=== PATIENT | male | born 1980 | race Caucasian/White ===

== ENCOUNTER 2016-10-17 14:46 | Inpatient (IN) | payer OTHER ==
[~2016-10-17] VITALS: Ht 172.7 cm; Wt 83.8 kg
[2016-10-17 13:08] VITALS: O2SAT 100
[2016-10-17 14:45] VITALS: O2SAT 100
[2016-10-17] MEDS ORDERED: DIPHTH/TETANUS/ACEL PERTUSSIS (BOOSTER) 0.5 ML VIAL/PFS IM ONE (14:53)
[2016-10-17] MEDS ORDERED: ceFAZolin 2 GM PREMIX 50 ML ONE (14:54)
[2016-10-17 15:12] LABS: AUTOMATED NEUTROPHIL # 5.1 TH/MM3 (1.8-7.7); BASOPHIL % 0.3 % (0.0-2.0); EOSINOPHIL % 0.3 % (0.0-4.0); HEMATOCRIT 40.8 % (39.0-51.0); HEMO FLAGS DIFF FINAL; LYMPH % 21.2 % (9.0-44.0); LYMPHOCYTE # 1.5 TH/MM3 (1.0-4.8); MEAN CORPUSCULAR HEMOGLOBIN 28.9 PG (27.0-34.0); MONO % 8.7 % (0.0-8.0); NEUT % 69.5 % (16.0-70.0); PLATELET COUNT 196 TH/MM3 (150-450); RED BLOOD COUNT 4.79 MIL/MM3 (4.50-5.90); RED CELL DISTRIBUTION WIDTH 13.3 % (11.6-17.2); WHITE BLOOD COUNT 7.3 TH/MM3 (4.0-11.0)
[2016-10-17 15:13] LABS: I-STAT POTASSIUM 3.7 MMOL/L (3.5-4.9)
--- NOTE | 2016-10-17 15:14 | RADRPT ---
EXAM DATE/TIME: 10/17/2016 14:41 [facility] COMPARISON: No previous studies available for comparison. INDICATIONS : Trauma alert, fall from 8 feet to cement. MEDICAL HISTORY : None. SURGICAL HISTORY : None. ENCOUNTER: Initial ACUITY: 1 day PAIN SCORE: 0/10 LOCATION: Bilateral chest FINDINGS: Portable AP view of the chest performed on a trauma backboard demonstrates a normal-sized cardiac noam houette. No effusion, consolidation, or pneumothorax is visualized. The bones and soft tissues demons trate no acute abnormality. CONCLUSION: No acute abnormality is identified. Ronald Richardson MD on October 17, 2016 at 15:12 Board Certified Radiologist. This report was verified electronically.
--- NOTE | 2016-10-17 15:15 | RADRPT ---
EXAM DATE/TIME: 10/17/2016 14:41 [facility] COMPARISON: No previous studies available for comparison. INDICATIONS : Fall from 8 feet onto cement. MEDICAL HISTORY : None. SURGICAL HISTORY : None. ENCOUNTER: Initial ACUITY: 1 day PAIN SCORE: Non-responsive. LOCATION: pelvis FINDINGS: Single AP view of the pelvis performed on a trauma backboard demonstrates no fracture or dislocation. Mineralization is within normal limits. There is no significant arthropathy. No soft tissue abnormal ity or radiopaque foreign body is identified. CONCLUSION: No acute abnormality is identified. Ronald Richardson MD on October 17, 2016 at 15:13 Board Certified Radiologist. This report was verified electronically.
--- NOTE | 2016-10-17 15:19 | RADRPT ---
EXAM DATE/TIME: 10/17/2016 15:01 This report includes an Addendum and supersedes previous reports for this exam. [facility] COMPARISON: No previous studies available for comparison. INDICATIONS : Trauma. Fell off ladder. Cephalgia. Loss of consciousness. RADIATION DOSE: 56.35 CTDIvol (mGy) MEDICAL HISTORY : Unobtainable. SURGICAL HISTORY : Unobtainable. ENCOUNTER: Initial ACUITY: 1 day PAIN SCALE: 5/10 LOCATION: cranial TECHNIQUE: Multiple contiguous axial images were obtained of the head. Using automated exposure control and adj ustment of the mA and/or kV according to patient size, radiation dose was kept as low as reasonably a chievable to obtain optimal diagnostic quality images. FINDINGS: CEREBRUM: The ventricles are normal in size. No evidence of midline shift, mass lesion, hemorrhage or acute in farction. No extra-axial fluid collections are seen. POSTERIOR FOSSA: The cerebellum and brainstem demonstrate no acute abnormality. The 4th ventricle is midline. The ce rebellopontine angle is unremarkable. EXTRACRANIAL: There are blood products layering in the right maxillary sinus. Mucoperiosteal thickening is present within the ethmoid air cells and sphenoid sinus. There is a questionable fracture through the right m edial pterygoid plate. Air is present within the right facial soft tissues. SKULL: The calvaria is intact. No evidence of skull fracture. CONCLUSION: 1. No acute intracranial abnormality is identified. 2. There are findings suspicious for maxillofacial trauma. These findings will be further evaluated a nd described on maxillofacial CT. Ronald Richardson MD on October 17, 2016 at 15:14 Board Certified Radiologist. This report was verified electronically. ADDENDUM: COMPARISON: CT FACIAL BONES W/O CONTRAST, October 17, 2016, 15:02. After correlating with the recent maxillofacial CT there appears to be a small hemorrhagic contusion in the left lateral temporal lobe with questionable adjacent small subdural hematoma. Suggest attenti on to this followup imaging. Ronald Richardson MD on October 17, 2016 at 17:55 Board Certified Radiologist. This report was verified electronically.
[2016-10-17 15:21] LABS: APTT (PATIENT) 22.6 SEC (24.3-30.1); PROTHROMBIN TIME - PATIENT 11.6 SEC (9.8-11.6)
--- NOTE | 2016-10-17 15:25 | PD ---
HPI Chief Complaint: Trauma (Alert) Time Seen by Provider: 14:54 Travel History International Travel<30 days: No Contact w/Intl Traveler<30days: No Traveled to known affect area: No History of Present Illness HPI Patient was brought in as a trauma alert by [employer]. I was in the room prior to patient's arrival along with the rest of the trauma team waiting for him. Patient was awake when he arrived and was able to give history. 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 He landed directly on his head. The fall was from 8-10 feet height. Patient did have loss of consciousness and initially did not remember the event. Initial GCS as per the paramedics at scene was 14. However en route his GCS improved and it was 15 upon arrival. He had blood coming from his right here in his nostril. Patient was boarded and collared and initially when he came in was complaining of upper back pain. He claims to be otherwise a healthy person. [facility] Past Medical History Narrative Medical List of his past medical, surgical, social and family history was reviewed from the nursing note. Allergies-Medications (Allergen,Severity, Reaction): Coded Allergies: No Known Allergies (Unverified , 10/17/16) Comments Denied any medication allergies. Reported Meds & Prescriptions Reported Meds & Active Scripts Active Narrative Medication Denied to be on any medications. Review of Systems Except as stated in HPI: all other systems reviewed are Neg Physical Exam Narrative GENERAL: Awake, alert, moderate distress, anxious, boarded and collared SKIN: Warm and dry. HEAD: Atraumatic. Normocephalic. EYES: Pupils equal and round. No scleral icterus. No injection or drainage. ENT: No nasal bleeding or discharge. Mucous membranes pink and moist. Right eardrum is not visualized due to fresh blood in the ear canal. Left TM visible and positive light reflex. Dried blood around the nostril. NECK: Trachea midline. No JVD. CARDIOVASCULAR: Regular rate and rhythm. No murmur appreciated. RESPIRATORY: No accessory muscle use. Clear to auscultation. Breath sounds equal bilaterally. GASTROINTESTINAL: Abdomen soft, non-tender, nondistended. Hepatic and splenic margins not palpable. MUSCULOSKELETAL: No obvious deformities. No clubbing. No cyanosis. No edema. Patient was rolled off the backboard. No step-offs or point tenderness. No contusions or abrasions. Pelvis stable. NEUROLOGICAL: Awake and alert. No obvious cranial nerve deficits. Motor grossly within normal limits. Normal speech. PSYCHIATRIC: Appropriate mood and affect; insight and judgment normal. Data Data Last Documented VS Orders Geet-Kof-Hktobd (Booster) Inj (Boostrix (10/17/16 14:53) Cefazolin 2 Gm Premix (Ancef 2 Gm Premix (10/17/16 14:54) I-Stat Profile (10/17/16 14:48) I-Stat Creatinine (10/17/16 14:48) Complete Blood Count With Diff (10/17/16 14:48) Prothrombin Time / Inr (Pt) (10/17/16 14:48) Act Partial Throm Time (Ptt) (10/17/16 14:48) Type And Screen (10/17/16 14:48) Chest, Single Ap (10/17/16 14:48) Pelvis, Ap Only (Routine) (10/17/16 14:48) Ct Abd/Pel W Iv Contrast(Rout) (10/17/16 14:48) Ct Thorax/ Chest W Iv Contrast (10/17/16 14:48) Ct Facial Bones W/O Iv Cont (10/17/16 14:48) Iv Access Insert/Monitor (10/17/16 14:48) Ecg Monitoring (10/17/16 14:48) Oximetry (10/17/16 14:48) Oxygen Administration (10/17/16 14:48) Ed Poc Ultrasound (10/17/16 14:48) Ct Brain W/O Iv Contrast(Rout) (10/17/16 15:00) Ct Cerv Spine W/O Contrast (10/17/16 15:00) Iohexol 350 Inj (Omnipaque 350 Inj) (10/17/16 15:31) Admit Order (Ed Use Only) (10/17/16 15:38) Labs MDM Medical Screen Exam Complete: Yes Emergency Medical Condition: Yes Medical Record Reviewed: Yes EKG Prior to Arrival: Yes Differential Diagnosis Intracranial injury, basilar skull fracture, temporal bone fracture, facial fracture, cervical fracture, intrathoracic injury, intra-abdominal injury Narrative Course 3:23 PM I reassessed the patient after he arrived and took him off the backboard. Patient did not remember his last tetanus shot. He was given a dose here today and 2 g of Ancef. He was taken to the CT scanner and I assisted him since the trauma surgeon was not there at that time. Trauma surgeon showed up in the CT patient was getting started with the studies. Patient continued to be hemodynamically stable and GCS of 15 to the left him. Awaiting for the CT scan report. Critical Care Narrative Aggregate critical care time was 30 minutes. Time to perform other separately billable procedures was not included in the critical care time. My time did not include minutes spent treating any other patients simultaneously or on activities that did not directly contribute to the patient's treatment. The services I provided to this patient were to treat and/or prevent clinically significant deterioration that could result in: Trauma alert I provided critical care services requiring my management, as noted below: Chart data review, documentation time, medication orders and management, vital sign assessments/reviewing monitor data, ordering and reviewing lab tests, ordering and interpreting/reviewing x-rays and diagnostic studies, care of the patient and discussion of the patient with the admitting physicians. Trauma Alert - Level One Trauma Alert Level One: Full trauma team activate, Patient evaluated, Trauma surgeon summoned Time Surgeon Summoned: 14:[address] Ramirez Diagnosis Diagnosis: Primary Impression: Fall (on) (from) other stairs and steps, initial encounter Additional Impressions: Skull fracture Qualified Code: S02.19XB - Open fracture of temporal bone, initial encounter Cerebral contusion Qualified Code: S06.321A - Cerebral contusion, left, with loss of consciousness of 30 minutes or less, initial encounter Blood in right ear canal Admitting Physician Requests: Admit Scripts Oxycodone-Acetaminophen 5-325 mg Tab1-2 Tab PO Q4H PRN (pain) #40 TAB Prov:Rosa PetersonP 10/19/16 Sennosides-Docusate Sodium (Senna Plus 8.6-50 mg)1 Tab Tab1 Tab PO BID 30 Days Prov:Rosa PetersonP 10/19/16 Magnesium Hydroxide Liq (Milk of Magnesia Liq)400 Mg/5 Ml Susp30 Ml PO DAILY 30 Days Prov:Rosa PetersonP 10/19/16 Malik Vázquez MD Oct 17, 2016 15:25 Activated Partial 22.6 SEC Thromboplast Time Bedside Sodium 139 MMOL/L Bedside Potassium 3.7 MMOL/L Bedside Chloride 99 MMOL/L Bedside Blood Urea Nitrogen 15 MG/DL Bedside Creatinine 1.0 MG/DL Bedside Glucose 126 MG/DL Blood Type O POSITIVE Antibody Screen NEGATIVE MDM Medical Screen Exam Complete: Yes Emergency Medical Condition: Yes Medical Record Reviewed: Yes EKG Prior to Arrival: Yes Differential Diagnosis Intracranial injury, basilar skull fracture, temporal bone fracture, facial fracture, cervical fracture, intrathoracic injury, intra-abdominal injury Narrative Course 3:23 PM I reassessed the patient after he arrived and took him off the backboard. Patient did not remember his last tetanus shot. He was given a dose here today and 2 g of Ancef. He was taken to the CT scanner and I assisted him since the trauma surgeon was not there at that time. Trauma surgeon showed up in the CT patient was getting started with the studies. Patient continued to be hemodynamically stable and GCS of 15 to the left him. Awaiting for the CT scan report. Critical Care Narrative Aggregate critical care time was 30 minutes. Time to perform other separately billable procedures was not included in the critical care time. My time did not include minutes spent treating any other patients simultaneously or on activities that did not directly contribute to the patient's treatment. The services I provided to this patient were to treat and/or prevent clinically significant deterioration that could result in: Trauma alert I provided critical care services requiring my management, as noted below: Chart data review, documentation time, medication orders and management, vital sign assessments/reviewing monitor data, ordering and reviewing lab tests, ordering and interpreting/reviewing x-rays and diagnostic studies, care of the patient and discussion of the patient with the admitting physicians. Trauma Alert - Level One Trauma Alert Level One: Full trauma team activate, Patient evaluated, Trauma surgeon summoned Time Surgeon Summoned: 14:[address] Ramirez Diagnosis Diagnosis: Primary Impression: Fall (on) (from) other stairs and steps, initial encounter Additional Impressions: Skull fracture Qualified Code: S02.19XB - Open fracture of temporal bone, initial encounter Cerebral contusion Qualified Code: S06.321A - Cerebral contusion, left, with loss of consciousness of 30 minutes or less, initial encounter Blood in right ear canal Admitting Physician Requests: Admit Malik Vázquez MD Oct 17, 2016 15:25
[2016-10-17] MEDS ORDERED: IOHEXOL 350 MG/ML 10 ML VIAL (for RAD DIAG) IV ONE (15:31)
[2016-10-17 15:32] VITALS: BP 137/71; PULSE 70; RESP 16; TEMP 98.1; O2SAT 100
--- NOTE | 2016-10-17 15:34 | RADRPT ---
EXAM DATE/TIME: 10/17/2016 15:00 [facility] COMPARISON: No previous studies available for comparison. INDICATIONS : Trauma. Fell off ladder. Back pain. IV CONTRAST: 100 cc Omnipaque 350 (iohexol) IV ; Cumulative dose for multiple exams. ORAL CONTRAST: No oral contrast ingested. RADIATION DOSE: 5.56 CTDIvol (mGy) ; Combined studies - Thorax/Abdomen/Pelvis MEDICAL HISTORY : Unobtainable. SURGICAL HISTORY : Unobtainable. ENCOUNTER: Initial ACUITY: 1 day PAIN SCALE: 4/10 LOCATION: Abdomen. TECHNIQUE: Volumetric scanning of the abdomen and pelvis was performed. Using automated exposure control and ad justment of the mA and/or kV according to patient size, radiation dose was kept as low as reasonably achievable to obtain optimal diagnostic quality images. FINDINGS: LOWER LUNGS: Please refer to chest CT report for description of the supradiaphragmatic findings. LIVER: No acute injury. There is no dilation of the biliary tree. No calcified gallstones. SPLEEN: No acute injury. PANCREAS: Within normal limits. KIDNEYS: Normal in size and shape. There is no mass, stone or hydronephrosis. ADRENAL GLANDS: Within normal limits. VASCULAR: There is no aortic aneurysm. No acute injury. BOWEL/MESENTERY: The stomach, small bowel, and colon demonstrate no acute abnormality. There is no free intraperitone al air or fluid. ABDOMINAL WALL: Within normal limits. RETROPERITONEUM: There is no lymphadenopathy. BLADDER: No wall thickening or mass. REPRODUCTIVE: Within normal limits. INGUINAL: There is no lymphadenopathy or hernia. MUSCULOSKELETAL: No fracture is visualized. CONCLUSION: No acute abnormality is identified within the abdomen or pelvis. Ronald Richardson MD on October 17, 2016 at 15:28 Board Certified Radiologist. This report was verified electronically.
--- NOTE | 2016-10-17 15:40 | RADRPT ---
EXAM DATE/TIME: 10/17/2016 15:09 [facility] COMPARISON: No previous studies available for comparison. INDICATIONS : Trauma. Fell off ladder. Back pain. IV CONTRAST: 100 cc Omnipaque 350 (iohexol) IV ; Cumulative dose for multiple exams. RADIATION DOSE: 5.56 CTDIvol (mGy) ; Combined studies - Thorax/Abdomen/Pelvis MEDICAL HISTORY : Unobtainable. SURGICAL HISTORY : Unobtainable. ENCOUNTER: Initial ACUITY: 1 day PAIN SCALE: 4/10 LOCATION: chest TECHNIQUE: Volumetric scanning of the chest was performed. Using automated exposure control and adjustment of t he mA and/or kV according to patient size, radiation dose was kept as low as reasonably achievable to obtain optimal diagnostic quality images. FINDINGS: LUNGS: There are multifocal patchy areas of groundglass opacity within the right upper, right middle, and ri ght lower lobe. No pneumothorax is present. PLEURA: There is no pleural thickening or pleural effusion. MEDIASTINUM: The heart and great vessels demonstrate no acute abnormality. There is no mediastinal or hilar lymph adenopathy. AXILLAE: Within normal limits. No lymphadenopathy. SKELETAL: There is a questionable nondisplaced right posterior second rib fracture. No other fracture is seen. MISCELLANEOUS: Please refer to abdomen and pelvis CT report for description of the subdiaphragmatic findings. CONCLUSION: 1. Multifocal areas of groundglass opacity throughout the right lung most likely represent pulmonary contusion. 2. Questionable nondisplaced right posterior second rib fracture. Ronald Richardson MD on October 17, 2016 at 15:32 Board Certified Radiologist. This report was verified electronically.
--- NOTE | 2016-10-17 15:43 | RADRPT ---
EXAM DATE/TIME: 10/17/2016 15:02 [facility] COMPARISON: No previous studies available for comparison. INDICATIONS : Trauma. Fell off ladder. RADIATION DOSE: 28.11 CTDIvol (mGy) MEDICAL HISTORY : Unobtainable. SURGICAL HISTORY : Unobtainable. ENCOUNTER: Initial ACUITY: 1 day PAIN SCALE: 0/10 LOCATION: Bilateral neck TECHNIQUE: Volumetric scanning of the cervical spine was performed. Multiplanar reconstructions in the sagittal, coronal and oblique axial planes were performed. Using automated exposure control and adjustment o f the mA and/or kV according to patient size, radiation dose was kept as low as reasonably achievable to obtain optimal diagnostic quality images. FINDINGS: There is normal sagittal spine alignment of the cervical spine. No anterolisthesis or retrolisthesis is present. The atlantoaxial relationship is within normal limits. There is no prevertebral soft tiss ue swelling present. No fracture or dislocation is identified. There is a small central disc protrusi on at C3-C4 and a questionable right paracentral disc protrusion at C4-C5. There is a nondisplaced right posterior second rib fracture adjacent to the right T2 transverse proce ss. Otherwise, the visualized portions of the posterior fossa, paraspinous soft tissues, and upper federico ng zones demonstrate no acute abnormality. CONCLUSION: 1. No cervical spine fracture is identified. 2. There is a small central disc protrusion at C3-C4 and questionable right paracentral disc protrusi on at C4-C5. 3. There is a nondisplaced right posterior second rib fracture. Ronald Richardson MD on October 17, 2016 at 15:38 Board Certified Radiologist. This report was verified electronically.
--- NOTE | 2016-10-17 15:44 | RADRPT ---
EXAM DATE/TIME: 10/17/2016 15:02 [facility] COMPARISON: No previous studies available for comparison. INDICATIONS : Trauma. Fell off ladder. Contusion right eye. RADIATION DOSE: 21.96 CTDIvol (mGy) MEDICAL HISTORY : Unobtainable. SURGICAL HISTORY : Unobtainable. ENCOUNTER: Initial ACUITY: 1 day PAIN SCORE: 4/10 LOCATION: Right facial TECHNIQUE: Volumetric scanning of the facial bones was performed. Using automated exposure contr ol and adjustment of the mA and/or kV according to patient size, radiation dose was kept as low as re asonably achievable to obtain optimal diagnostic quality images. FINDINGS: CT scan of the facial bones reveals a small left temporal parietal contusion. There is minimal opacification of the right mastoid. There is an air-fluid level in the right maxillary sinus . There is a small amount of air in the right infratemporal fossa with a small fracture of the poste rior wall of the maxillary antrum. CONCLUSION: 1. Nondisplaced facial fractures on the right within an air-fluid level in the right maxillary sinus. 2. There is a small in the infratemporal fossa. 3. Mandible and maxilla are intact. Lucas Ordaz MD FACR on October 17, 2016 at 15:36 Board Certified Radiologist. This report was verified electronically.
[2016-10-17] MEDS ORDERED: MORPHINE SULFATE 4 MG/ML INJ IV PUSH ONE (16:00)
[2016-10-17] MEDS ORDERED: MORPHINE SULFATE 4 MG/ML INJ IV PRN (16:15)
[2016-10-17] MEDS ORDERED: SODIUM CHLORIDE 0.9% FLUSH 5 ML FLUSH IVF PRN (16:15)
[2016-10-17] MEDS ORDERED: NALOXONE HCL 0.4 MG/ML AMP IV PRN (16:15)
[2016-10-17] MEDS ORDERED: Post-op Orders (for Pharmacy) MISC XX ONE (16:15)
[2016-10-17] MEDS: PANTOPRAZOLE SOD 40 MG DELAYED RELEASE TAB PO SCH (16:59)
[2016-10-17] MEDS: SODIUM CHLOR 0.9% 1000 ML INJ 1,000 ML IV SCH (17:00)
--- NOTE | 2016-10-17 17:23 | PD.CONS ---
[facility] Service neurosurgery Consult Requested By Dr Denson Reason for Consult trauma alert Primary Care Physician History of Present Illness This is an adult male brought in as a trauma alert by [employer]. 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 He landed directly on his head. He fell 8-10 feet height. He did have loss of consciousness and does not remember the event. Initial GCS as per the paramedics at scene was 14. However on route his GCS improved and it was 15 upon arrival. He had blood from his right EAC and his nostril. Ct brain showed a skull base fracture. Neurosurgical consultation was requested. Review of Systems Constitutional: DENIES: Diaphoretic episodes, Fatigue, Fever, Weight gain, Weight loss, Chills, Dizziness, Change in appetite, Night Sweats Endocrine: DENIES: Heat/cold intolerance, Polydipsia, Polyuria, Polyphagia Eyes: DENIES: Blurred vision, Diplopia, Eye inflammation, Eye pain, Vision loss , Photosensitivity, Double Vision Ears, nose, mouth, throat: COMPLAINS OF: Tinnitus, Hearing loss, Ear Pain, Running Nose, DENIES: Vertigo, Nasal discharge, Oral lesions, Throat pain, Hoarseness, Epistaxis, Sinus Pain, Toothache, Odynophagia Respiratory: DENIES: Apneas, Cough, Snoring, Wheezing, Hemoptysis, Sputum production, Shortness of breath Cardiovascular: DENIES: Chest pain, Palpitations, Syncope, Dyspnea on Exertion , PND, Lower Extremity Edema, Orthopnea, Claudication Gastrointestinal: DENIES: Abdominal pain, Black stools, Bloody stools, Constipation, Diarrhea, Nausea, Vomiting, Difficulty Swallowing, Anorexia Genitourinary: DENIES: Sexual dysfunction, Urinary frequency, Urinary incontinence, Urgency, Hematuria, Dysuria, Nocturia, Penile Discharge, Testicular Pain, Testicular Swelling Musculoskeletal: DENIES: Joint pain, Muscle aches, Stiffness, Joint Swelling, Back pain, Neck pain Integumentary: DENIES: Abnormal pigmentation, Nail changes, Pruritus, Rash Hematologic/lymphatic: DENIES: Bruising, Lymphadenopathy Neurologic: COMPLAINS OF: Headache, DENIES: Abnormal gait, Localized weakness , Paresthesias, Seizures, Speech Problems, Tremor, Poor Balance Psychiatric: DENIES: Anxiety, Confusion, Mood changes, Depression, Hallucinations, Agitation, Suicidal Ideation, Homicidal Ideation, Delusions Past Family Social History Allergies: Coded Allergies: No Known Allergies (Unverified , 10/17/16) Active Ordered Medications Current Medications Diphtheria/ Tetanus/Acell Pertussis 0.5 ml 0.5 ml STK-MED ONCE IM ; Start at 14:53; Stop 10/17/16 at 14:54; Status DC Cefazolin Sodium/ Dextrose (Ancef 2 Gm Premix) 50 ml @ As Directed STK-MED ONCE .ROUTE ; Start 10/17/16 at 14:54; Stop 10/17/16 at 14:55; Status DC Iohexol (Omnipaque 350 Inj) 100 ml STK-MED ONCE IV Last administered on 15:31; Start 10/17/16 at 15:31; Stop 10/17/16 at 15:32; Status DC Morphine Sulfate 4 mg 4 mg ONCE ONCE IV PUSH Last administered on 10/17/16 16: 34; Start 10/17/16 at 16:00; Stop 10/17/16 at 16:01; Status DC Sodium Chloride (NS 1000 ml Inj) 1,000 ml @ 100 mls/hr Q10H IV Last administered on 10/17/16 17:00; Start 10/17/16 at 16:10 IV Flush (NS Flush) 2 ml UNSCH PRN IVF FLUSH AFTER USING IV ACCESS; Start at 16:15 IV Flush (NS Flush) 2 ml BID IVF ; Start 10/17/16 at 21:00 Ondansetron HCl (Zofran Inj) 4 mg Q6H PRN IV NAUSEA OR VOMITING; Start 10/17/16 at 16:15 Pantoprazole Sodium (Protonix) 40 mg Q24H PO Last administered on 10/17/16 16: 59; Start 10/17/16 at 16:15 Miscellaneous Information (Post-op Orders (for Pharmacy)) STAT ONCE XX ; Start 10/17/16 at 16:15; Stop 10/17/16 at 16:30; Status DC Oxycodone/ Acetaminophen (Percocet 5-325 Mg) 1 tab Q4H PRN PO PAIN SCALE 3 TO 5; Start 10/17/16 at 16:15 Morphine Sulfate (Morphine Inj) 4 mg Q3H PRN IV Pain 6-10; Start 10/17/16 at 16: 15 Naloxone HCl (Narcan Inj) 0.4 mg UNSCH PRN IV SEE LABEL COMMENTS; Start at 16:15 Levetriacetam (Keppra) 500 mg Q12HR PO ; Start 10/17/16 at 21:00 Physical Exam Vital Signs Vital Signs Date Time Temp Pulse Resp B/P Pulse Ox O2 Delivery O2 Flow Rate FiO2 10/17/16 15:58 96 Room Air 10/17/16 15:58 82 18 96 Room Air 10/17/16 15:32 98.1 70 16 137/71 100 10/17/16 14:45 100 2.00 Physical Exam The patient is alert, awake and oriented to time, place and person. Speech is fluent. GCS 15 Cranial nerve examination demonstrates the pupils to be equal, round, and reactive to light. Extra-ocular movements are intact. Blood from right EAC. Facial motor and sensory function are normal and symmetrical. Gross hearing is decreased in right side. The uvula is midline and elevates symmetrically with the soft palate. Sternocleidomastoid and trapezius muscles have normal and symmetrical strength. Other cranial nerves are intact. Neck is soft and supple. Cervical spine has a full range of motion in anterior flexion, extension, lateral bending, and rotation without pain. There is no tenderness to palpation to the spinous processes or paraspinal muscles. Muscle testing reveals normal bulk and tone overall without rigidity, spasticity , fasciculations, or atrophy. Muscle strength is 5/5 in all muscle groups of both upper extremities including deltoid, biceps, triceps, brachioradialis, wrist extension and trial justice. In the lower extremities, strength is 5/5 in both iliopsoas, quadriceps, hamstrings, plantar flexion, dorsiflexion, and extensor hallicus longus. Sensory examination is intact to light touch and sharp/dull discrimination in both the upper and lower extremities, symmetrically. Deep tendon reflexes are 2+ and symmetrical in the biceps, triceps, and brachioradialis, bilaterally, in the upper extremities. In the lower extremities , the patellar and Achilles are 2+, bilaterally. There is a bilateral plantar flexion response. Hoffmanns sign is negative. There is no clonus or other abnormal reflexes noted. Cerebellar examination is intact to [id number] test, rapid rhythmic alternating motion. There is no dysmetria, dysdiadochokinesia, truncal ataxia, or tremor. Laboratory Laboratory Tests Test 10/17/16 14:53 White Blood Count 7.3 Red Blood Count 4.79 Hemoglobin 13.9 Bedside Hemoglobin 14.3 Hematocrit 40.8 Bedside Hematocrit 42.0 Mean Corpuscular Volume 85.0 Mean Corpuscular Hemoglobin 28.9 Mean Corpuscular Hemoglobin 34.0 Concent Red Cell Distribution Width 13.3 Platelet Count 196 Mean Platelet Volume 8.6 Neutrophils (%) (Auto) 69.5 Lymphocytes (%) (Auto) 21.2 Monocytes (%) (Auto) 8.7 Eosinophils (%) (Auto) 0.3 Basophils (%) (Auto) 0.3 Neutrophils # (Auto) 5.1 Lymphocytes # (Auto) 1.5 Monocytes # (Auto) 0.6 Eosinophils # (Auto) 0.0 Basophils # (Auto) 0.0 CBC Comment DIFF FINAL Differential Comment Prothrombin Time 11.6 Prothromb Time International 1.0 Ratio Activated Partial 22.6 Thromboplast Time Bedside Sodium 139 Bedside Potassium 3.7 Bedside Chloride 99 Bedside Blood Urea Nitrogen 15 Bedside Creatinine 1.0 Bedside Glucose 126 Blood Type O POSITIVE Antibody Screen NEGATIVE Result Diagram: 10/17/16 1453 Imaging Last Impressions Head CT 10/17/16 1500 Signed Impressions: Service Date/Time: Monday, October 17, 2016 15:01 - CONCLUSION: 1. No acute intracranial abnormality is identified. 2. There are findings suspicious for maxillofacial trauma. These findings will be further evaluated and described on maxillofacial CT. Ronald Richardson MD Cervical Spine CT 10/17/16 1500 Signed Impressions: Service Date/Time: Monday, October 17, 2016 15:02 - CONCLUSION: 1. No cervical spine fracture is identified. 2. There is a small central disc protrusion at C3-C4 and questionable right paracentral disc protrusion at C4-C5. 3. There is a nondisplaced right posterior second rib fracture. Ronald Richardson MD Pelvis X-Ray 10/17/16 1448 Signed Impressions: Service Date/Time: Monday, October 17, 2016 14:41 - CONCLUSION: No acute abnormality is identified. Ronald Richardson MD Chest X-Ray 10/17/16 1448 Signed Impressions: Service Date/Time: Monday, October 17, 2016 14:41 - CONCLUSION: No acute abnormality is identified. Ronald Richardson MD Chest CT 10/17/16 1448 Signed Impressions: Service Date/Time: Monday, October 17, 2016 15:09 - CONCLUSION: 1. Multifocal areas of groundglass opacity throughout the right lung most likely represent pulmonary contusion. 2. Questionable nondisplaced right posterior second rib fracture. Ronald Richardson MD Abdomen/Pelvis CT 10/17/16 1448 Signed Impressions: Service Date/Time: Monday, October 17, 2016 15:00 - CONCLUSION: No acute abnormality is identified within the abdomen or pelvis. Ronald Richardson MD Attending Statement Neuro. I have reviewed his clinical and radiological findings. neuro checks in a serial fashion. Follow up CT in 24 hrs Respiratory. pulmonary toilette, nasotracheal suction, and breathing treatments with nebulizers. PT and OT eval Nutrition. Oral diet ID monitor for signs of infection Protonix for stress ulcer prophylaxis Taurus hose and SCD's for DVT prophylaxis Angelo Solares MD Oct 17, 2016 17:23
[2016-10-17 18:00] VITALS: BP 140/73; PULSE 69; RESP 13; TEMP 98.2; O2SAT 95
--- NOTE | 2016-10-17 18:25 | MH ---
cc: ROXANNE CASTRO MD DATE OF ADMISSION 10/17/[address] Castro. ADMISSION DIAGNOSIS Trauma alert, fall from 10 feet on concrete, loss of consciousness, basal skull fracture with fracture of the petrous bone, left parietal brain contusion and minimal intraparenchymal bleed and right lung contusion. HISTORY OF THE PRESENT ILLNESS This pleasant, unfortunate gentleman was working on a ladder putting up some pool screen or something when he fell. The patient fell on the concrete on his right side of the body. He was brought in as priority one trauma alert on spinal board with a C-collar in place, complaining about pain over the right ear. He was apparently seen with [place] coma scale of 13-14 which is now 15. The patient is awake and alert. PAST MEDICAL HISTORY Negative. PAST SURGICAL HISTORY Past surgical history is negative. MEDICATIONS No medications. ALLERGIES No allergies. SOCIAL HISTORY Noncontributory. The patient does not smoke or drink. PHYSICAL EXAMINATION GENERAL: Physical examination reveals a pleasant 26-eev-j[age]-old gentleman in no acute distress. HEENT: Normocephalic. Trauma to the head consisting of bruising over the right ear and hemotympanum. Actually it is bleeding from the right ear that has stopped now. Positive Melissa's sign, positive raccoon eyes on the right side, and probably developing one on the left side. Pupils equally reactive. Extraocular muscles are intact. No lateralization. Tenderness over the right of the nasal bone and forehead. Some bruising noted here as well. Oral cavity is intact. The mandible is intact. NECK: Bilateral carotid pulses. No bruits. No signs of trauma to the neck. The patient has no neck pain. C collar is removed. CHEST: Bilateral breath sounds. HEART: Regular rhythm. Tenderness over the right upper chest where the patient fell sideways. There is fracture of the second rib. Underlying pulmonary contusion as above stated. ABDOMEN: Soft. Active bowel sounds. No rebound or guarding. No masses. Pelvis is stable. EXTREMITIES: The patient has bilateral femoral, popliteal, dorsalis pedis, posterior tibial pulses. BACK: The patient is log rolled to the back, examination of back reveals some tenderness over the low thoracic and upper lumbar spine but no deformities. No step-offs are not noted. NEUROLOGIC: [place] coma scale is 15. Cranial nerves II through XII are normal. No lateralization. Above-noted blood from the right ear which has stopped now. Some bleeding from the nasal cavity. Deep tendon reflexes are normal. No pathologic . Motor and sensory the patient is intact. Protocol resuscitation. The patient was resuscitated according to trauma principals. Primary and secondary survey resuscitation definitive care are carried out simultaneously. The patient taken to the CT scan, noted injuries are: 1. Basal skull fracture to the right pyramid. 2. Hemotympanum. 3. Left parietal brain contusion with small bleed. 4. Right upper lung contusion. The patient will be admitted overnight in the ICU. Neurosurgery was consulted and further care is per clinical. 45 minutes critical care time. Roxanne Castro SJ/KK /5:55 PM /6:13 PM
[2016-10-17 20:00] VITALS: BP 120/65; PULSE 67; RESP 15; TEMP 98.9; O2SAT 98
[2016-10-17] MEDS: SODIUM CHLORIDE 0.9% FLUSH 5 ML FLUSH IVF SCH (20:25)
[2016-10-17] MEDS: levETIRAcetam 500 MG TAB PO SCH (20:47)
[2016-10-17 22:00] VITALS: PULSE 65
[2016-10-17] MEDS: oxyCODONE/ACETAMINOPHEN 5 MG/325 MG TAB PO PRN (23:39)
[2016-10-18] VITALS (10 sets, daily range): BP systolic 121–140; BP diastolic 58–85; PULSE 54–84; RESP 12–20; TEMP 98.3–99; O2SAT 92–100
[2016-10-18 01:46] LABS: MRSA PCR NEGATIVE (NEGATIVE); STAPH AUREUS PCR NEGATIVE (NEGATIVE)
[2016-10-18] MEDS: SODIUM CHLOR 0.9% 1000 ML INJ 1,000 ML IV SCH (02:32)
[2016-10-18 05:04] LABS: AUTOMATED NEUTROPHIL # 7.7 TH/MM3 (1.8-7.7); BASOPHIL % 0.1 % (0.0-2.0); HEMO FLAGS DIFF FINAL; LYMPH % 9.5 % (9.0-44.0); LYMPHOCYTE # 0.9 TH/MM3 (1.0-4.8); MEAN CELL VOLUME 85.5 FL (80.0-100.0); MEAN CORPUSCULAR HEMOGLOBIN 29.4 PG (27.0-34.0); MEAN CORPUSCULAR HGB CONC 34.4 % (32.0-36.0); MONO % 11.1 % (0.0-8.0); NEUT % 79.3 % (16.0-70.0); PLATELET COUNT 168 TH/MM3 (150-450); RED BLOOD COUNT 4.32 MIL/MM3 (4.50-5.90); RED CELL DISTRIBUTION WIDTH 13.2 % (11.6-17.2); WHITE BLOOD COUNT 9.7 TH/MM3 (4.0-11.0)
[2016-10-18 05:28] LABS: BICARBONATE 25.3 MEQ/L (21.0-32.0); POTASSIUM 3.5 MEQ/L (3.5-5.1)
[2016-10-18] MEDS: SODIUM CHLORIDE 0.9% FLUSH 5 ML FLUSH IVF SCH ×2 (07:47→20:45)
[2016-10-18] MEDS: DOCUSATE SODIUM 50 MG/SENNA 8.6 MG TAB PO SCH ×2 (09:56→20:45)
[2016-10-18] MEDS: METHOCARBAMOL 500 MG TAB PO SCH ×3 (09:56→20:45)
[2016-10-18] MEDS: ONDANSETRON HCL 4 MG/2 ML VIAL IV PRN ×2 (09:56→20:46)
[2016-10-18] MEDS: levETIRAcetam 500 MG TAB PO SCH ×2 (09:56→20:45)
[2016-10-18] MEDS: MAGNESIUM HYDROXIDE SUSP 30 ML CUP PO SCH (09:56)
--- NOTE | 2016-10-18 09:56 | RADRPT ---
EXAM DATE/TIME: 10/18/2016 05:55 [facility] COMPARISON: CT FACIAL BONES W/O CONTRAST, October 17, 2016, 15:02. CT BRAIN W/O CONTRAST, October 17, 2016, 15:01. INDICATIONS : Follow up brain contusion and basal skull fracture. RADIATION DOSE: 56.35 CTDIvol (mGy) MEDICAL HISTORY : Non-responsive. SURGICAL HISTORY : Non-responsive. ENCOUNTER: Subsequent ACUITY: 2 days PAIN SCALE: Non-responsive LOCATION: cranial TECHNIQUE: Multiple contiguous axial images were obtained of the head. Using automated exposure control and adj ustment of the mA and/or kV according to patient size, radiation dose was kept as low as reasonably a chievable to obtain optimal diagnostic quality images. FINDINGS: Mild parenchymal hemorrhage involving the left temporal lobe is stable. Slightly increased edema with decreased density is identified in the left temporal lobe. There is no significant associated mass e ffect or shift of midline structures. Cerebral hemispheres, brain stem and cerebellum are otherwise stable. There are no intra-axial fluid collections. Right temporal bone fracture involving the petrous bone is stable. Fluid accumulation with air-fluid levels are again identified in the right maxillary sinus, right-sided ethmoid air cells and sphenoid sinus. Nondisplaced fractures of the right lateral orbital wall and zygoma are stable. CONCLUSION: Slight increase in edema within the left temporal lobe with no evidence of additional hemorrhage. Stable right temporal bone, orbital and zygoma fractures. Allan Wilkins MD on October 18, 2016 at 9:41 Board Certified Radiologist. This report was verified electronically.
[2016-10-18] MEDS: PANTOPRAZOLE SOD 40 MG DELAYED RELEASE TAB PO SCH (16:26)
--- NOTE | 2016-10-18 16:35 | HHI.NSPN ---
Note Status Status: Progress Note Interval History Diagnosis Trauma alert Interval History This is an adult male brought in as a trauma alert by [employer]. 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 He landed directly on his head. He fell 8-10 feet height. He did have loss of consciousness and does not remember the event. Initial GCS as per the paramedics at scene was 14. However on route his GCS improved and it was 15 upon arrival. He had blood from his right EAC and his nostril. Ct brain showed a skull base fracture. Neurosurgical consultation was requested. 10/18. He reports severe, persistent headaches. No focal weakness. No CSF leak. A follow up CT done today Labs, Micro, & Vital Signs Results Date Time Temp Pulse Resp B/P Pulse Ox O2 Delivery O2 Flow Rate FiO2 10/18/16 16:00 98.3 83 20 136/72 100 10/18/16 16:00 84 10/18/16 14:00 80 10/18/16 12:00 54 10/18/16 12:00 98.8 54 12 124/85 100 10/18/16 10:00 79 10/18/16 08:00 73 10/18/16 08:00 98.7 73 16 140/75 100 10/18/16 07:00 96 Room Air 10/18/16 06:00 71 10/18/16 04:00 98.4 63 16 121/67 96 10/18/16 04:00 63 10/18/16 02:00 69 10/18/16 00:00 98.9 75 17 124/58 92 10/18/16 00:00 65 10/17/16 22:00 65 10/17/16 20:00 98.9 67 15 120/65 98 10/17/16 20:00 67 10/17/16 19:00 98 Nasal Cannula 2.00 10/17/16 18:00 69 10/17/16 18:00 92 Nasal Cannula 2.00 10/17/16 18:00 98.2 69 13 140/73 95 10/18/16 07:00 Intake Total 1622 ml Output Total 700 ml Balance 922 ml Constitutional Vital Signs Date Time Temp Pulse Resp B/P Pulse Ox O2 Delivery O2 Flow Rate FiO2 10/18/16 16:00 98.3 83 20 136/72 100 10/18/16 16:00 84 10/18/16 14:00 80 10/18/16 12:00 54 10/18/16 12:00 98.8 54 12 124/85 100 10/18/16 10:00 79 10/18/16 08:00 73 10/18/16 08:00 98.7 73 16 140/75 100 10/18/16 07:00 96 Room Air 10/18/16 06:00 71 10/18/16 04:00 98.4 63 16 121/67 96 10/18/16 04:00 63 10/18/16 02:00 69 10/18/16 00:00 98.9 75 17 124/58 92 10/18/16 00:00 65 10/17/16 22:00 65 10/17/16 20:00 98.9 67 15 120/65 98 10/17/16 20:00 67 10/17/16 19:00 98 Nasal Cannula 2.00 10/17/16 18:00 69 10/17/16 18:00 92 Nasal Cannula 2.00 10/17/16 18:00 98.2 69 13 140/73 95 10/18/16 07:00 Intake Total 1622 ml Output Total 700 ml Balance 922 ml Review of Systems/Exam Exam He is alert, awake and oriented to time, place and person. Speech is fluent. GCS 15 Cranial nerve examination demonstrates the pupils to be equal, round, and reactive to light. Extra-ocular movements are intact. Blood from right EAC. Facial motor and sensory function are normal and symmetrical. Gross hearing is decreased in right side. The uvula is midline and elevates symmetrically with the soft palate. Sternocleidomastoid and trapezius muscles have normal and symmetrical strength. Other cranial nerves are intact. Neck is soft and supple. Cervical spine has a full range of motion in anterior flexion, extension, lateral bending, and rotation without pain. There is no tenderness to palpation to the spinous processes or paraspinal muscles. Muscle testing reveals normal bulk and tone overall without rigidity, spasticity , fasciculations, or atrophy. 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 In the lower extremities, strength is 5/5 in both iliopsoas, quadriceps, hamstrings, plantar flexion, dorsiflexion, and extensor hallicus longus. Sensory examination is intact to light touch and sharp/dull discrimination in both the upper and lower extremities, symmetrically. Deep tendon reflexes are 2+ and symmetrical in the biceps, triceps, and brachioradialis, bilaterally, in the upper extremities. In the lower extremities , the patellar and Achilles are 2+, bilaterally. There is a bilateral plantar flexion response. Hoffmanns sign is negative. There is no clonus or other abnormal reflexes noted. Cerebellar examination is intact to [id number] test, rapid rhythmic alternating motion. There is no dysmetria, dysdiadochokinesia, truncal ataxia, or tremor. Medications Current Medications Current Medications Diphtheria/ Tetanus/Acell Pertussis 0.5 ml 0.5 ml STK-MED ONCE IM ; Start at 14:53; Stop 10/17/16 at 14:54; Status DC Cefazolin Sodium/ Dextrose (Ancef 2 Gm Premix) 50 ml @ As Directed STK-MED ONCE .ROUTE ; Start 10/17/16 at 14:54; Stop 10/17/16 at 14:55; Status DC Iohexol (Omnipaque 350 Inj) 100 ml STK-MED ONCE IV Last administered on 15:31; Start 10/17/16 at 15:31; Stop 10/17/16 at 15:32; Status DC Morphine Sulfate 4 mg 4 mg ONCE ONCE IV PUSH Last administered on 10/17/16 16: 34; Start 10/17/16 at 16:00; Stop 10/17/16 at 16:01; Status DC Sodium Chloride (NS 1000 ml Inj) 1,000 ml @ 100 mls/hr Q10H IV Last administered on 10/18/16 02:32; Start 10/17/16 at 16:10; Stop 10/18/16 at 09:27; Status DC IV Flush (NS Flush) 2 ml UNSCH PRN IVF FLUSH AFTER USING IV ACCESS; Start at 16:15 IV Flush (NS Flush) 2 ml BID IVF Last administered on 10/18/16 07:47; Start 10/17/16 at 21:00 Ondansetron HCl (Zofran Inj) 4 mg Q6H PRN IV NAUSEA OR VOMITING Last administered on 10/18/16 09:56; Start 10/17/16 at 16:15 Pantoprazole Sodium (Protonix) 40 mg Q24H PO Last administered on 10/18/16 16: 26; Start 10/17/16 at 16:15 Miscellaneous Information (Post-op Orders (for Pharmacy)) STAT ONCE XX ; Start 10/17/16 at 16:15; Stop 10/17/16 at 16:30; Status DC Oxycodone/ Acetaminophen (Percocet 5-325 Mg) 1 tab Q4H PRN PO PAIN SCALE 3 TO 5 Last administered on 10/17/16 23:39; Start 10/17/16 at 16:15 Morphine Sulfate (Morphine Inj) 4 mg Q3H PRN IV Pain 6-10 Last administered on 10/17/16 18:11; Start 10/17/16 at 16:15 Naloxone HCl (Narcan Inj) 0.4 mg UNSCH PRN IV SEE LABEL COMMENTS; Start at 16:15 Levetriacetam (Keppra) 500 mg Q12HR PO Last administered on 10/18/16 09:56; Start 10/17/16 at 21:00 Senna/Docusate Sodium (Kim-Colace) 1 tab BID PO Last administered on 10/18/16 09:56; Start 10/18/16 at 09:00 Magnesium Hydroxide (Milk Of Magnesia Liq) 30 ml DAILY PO Last administered on 10/18/16 09:56; Start 10/18/16 at 09:00 Methocarbamol (Robaxin) 500 mg Q8HR PO Last administered on 10/18/16 14:10; Start 10/18/16 at 08:00 Medical Decision Making MDM Remarks Last Impressions Head CT 10/18/16 0600 Signed Impressions: Service Date/Time: Tuesday, October 18, 2016 05:55 - CONCLUSION: Slight increase in edema within the left temporal lobe with no evidence of additional hemorrhage. Stable right temporal bone, orbital and zygoma fractures. Allan Wilkins MD Cervical Spine CT 10/17/16 1500 Signed Impressions: Service Date/Time: Monday, October 17, 2016 15:02 - CONCLUSION: 1. No cervical spine fracture is identified. 2. There is a small central disc protrusion at C3-C4 and questionable right paracentral disc protrusion at C4-C5. 3. There is a nondisplaced right posterior second rib fracture. Ronald Richardson MD Pelvis X-Ray [id number] Signed Impressions: Service Date/Time: Monday, October 17, 2016 14:41 - CONCLUSION: No acute abnormality is identified. Ronald Richardson MD Maxillofacial CT [id number] Signed Impressions: Service Date/Time: Monday, October 17, 2016 15:02 - CONCLUSION: 1. Nondisplaced facial fractures on the right within an air-fluid level in the right maxillary sinus. 2. There is a small in the infratemporal fossa. 3. Mandible and maxilla are intact. Lucas Ordaz MD FACR Chest X-Ray [id number] Signed Impressions: Service Date/Time: Monday, October 17, 2016 14:41 - CONCLUSION: No acute abnormality is identified. Ronald Richardson MD Chest CT 10/17/16 144 Signed Impressions: Service Date/Time: Monday, October 17, 2016 15:09 - CONCLUSION: 1. Multifocal areas of groundglass opacity throughout the right lung most likely represent pulmonary contusion. 2. Questionable nondisplaced right posterior second rib fracture. Ronald Richardson MD Abdomen/Pelvis CT 10/17/16 144 Signed Impressions: Service Date/Time: Monday, October 17, 2016 15:00 - CONCLUSION: No acute abnormality is identified within the abdomen or pelvis. Ronald Richardson MD Plan Plan Remarks Middle age male with a basal skull fracture with fracture of the petrous bone, left parietal brain contusion and minimal intraparenchymal bleed and right lung contusion. Attending Statement Neuro.Continue neuro checks in a serial fashion. I reviewed his follow up CT, there is increase in edema in temporal lobe. Continue to watch for CSF leak Pulmonary contusion. Defer to trauma surgeon Respiratory. Continue pulmonary toilette, nasotracheal suction, and breathing treatments with nebulizers. PT and OT eval Nutrition. Continue Oral diet ID Continue to monitor for signs of infection Continue Protonix for stress ulcer prophylaxis Continue Taurus borges and SCD's for DVT prophylaxis Angelo Solares MD Oct 18, 2016 16:35
[2016-10-18] MEDS: oxyCODONE/ACETAMINOPHEN 5 MG/325 MG TAB PO PRN (20:45)
[2016-10-19 00:08] VITALS: BP 107/59; PULSE 64; RESP 18; TEMP 98; O2SAT 97
[2016-10-19 04:25] VITALS: BP 122/70; PULSE 67; RESP 18; TEMP 98.1; O2SAT 96
[2016-10-19] MEDS: METHOCARBAMOL 500 MG TAB PO SCH (06:09)
[2016-10-19] MEDS ORDERED: MILKSUS PO (07:17)
[2016-10-19] MEDS ORDERED: SENN1TAB PO (07:17)
[2016-10-19 08:00] VITALS: BP 112/70; PULSE 74; RESP 19; TEMP 98.5; O2SAT 97
--- NOTE | 2016-10-19 08:34 | RADRPT ---
EXAM DATE/TIME: 10/19/2016 08:21 [facility] COMPARISON: CHEST SINGLE AP, October 17, 2016, 14:41. INDICATIONS : Post fall 8 feet. MEDICAL HISTORY : None. SURGICAL HISTORY : None. ENCOUNTER: Subsequent ACUITY: 2 days PAIN SCORE: 0/10 LOCATION: Bilateral upper chest FINDINGS: Portable AP view of the chest demonstrates a normal-sized cardiac silhouette. No effusion, consolidat ion, or pneumothorax is visualized. The bones and soft tissues demonstrate no acute abnormality. Ther e is linear subsegmental atelectasis at the left lung base. CONCLUSION: No acute cardiopulmonary abnormality is identified. Ronald Richardson MD on October 19, 2016 at 8:31 Board Certified Radiologist. This report was verified electronically.
[2016-10-19] MEDS: DOCUSATE SODIUM 50 MG/SENNA 8.6 MG TAB PO SCH (09:00)
[2016-10-19] MEDS: SODIUM CHLORIDE 0.9% FLUSH 5 ML FLUSH IVF SCH (09:00)
[2016-10-19] MEDS: MAGNESIUM HYDROXIDE SUSP 30 ML CUP PO SCH (09:00)
[2016-10-19] MEDS: levETIRAcetam 500 MG TAB PO SCH (09:46)
[2016-10-19] MEDS ORDERED: OXYC1TAB63 PO (11:47)
[2016-10-19 11:51] VITALS: BP 113/71; PULSE 62; RESP 17; TEMP 98.1; O2SAT 98
--- NOTE | 2016-10-19 11:53 | HHI.DS ---
Discharge Summary Admission Date Oct 17, 2016 at 15:40 Discharge Date: Oct 19, 2016 Admitting Diagnosis fall, skull fracture, intracranial bleed (1) Cerebral contusion Diagnosis: Principal (2) Rib fracture Diagnosis: Principal (3) Skull fracture Diagnosis: Principal (4) Pulmonary contusion Diagnosis: Principal (5) Fall (on) (from) other stairs and steps, initial encounter Diagnosis: Principal (6) Blood in right ear canal CBC/BMP: 10/18/16 0355 10/18/16 0355 Significant Findings Laboratory Tests Test 10/17/16 10/18/16 14:53 03:55 Monocytes (%) (Auto) 8.7 % (0.0-8.0) 11.1 % (0.0-8.0) Activated Partial 22.6 SEC Thromboplast Time (24.3-30.1) Bedside Glucose 126 MG/DL (60-95) Red Blood Count 4.32 MIL/MM3 (4.50-5.90) Hemoglobin 12.7 GM/DL (13.0-17.0) Hematocrit 37.0 % (39.0-51.0) Neutrophils (%) (Auto) 79.3 % (16.0-70.0) Lymphocytes # (Auto) 0.9 TH/MM3 (1.0-4.8) Monocytes # (Auto) 1.1 TH/MM3 (0-0.9) Estimat Glomerular Filtration 85 ML/MIN (>89) Rate Calcium Level 8.4 MG/DL (8.5-10.1) Imaging Last Impressions Chest X-Ray 10/19/16 0000 Signed Impressions: Service Date/Time: Wednesday, October 19, 2016 08:21 - CONCLUSION: No acute cardiopulmonary abnormality is identified. Ronald Richardson MD Head CT 10/18/16 0600 Signed Impressions: Service Date/Time: Tuesday, October 18, 2016 05:55 - CONCLUSION: Slight increase in edema within the left temporal lobe with no evidence of additional hemorrhage. Stable right temporal bone, orbital and zygoma fractures. Allan Wilkins MD Cervical Spine CT 10/17/16 1500 Signed Impressions: Service Date/Time: Monday, October 17, 2016 15:02 - CONCLUSION: 1. No cervical spine fracture is identified. 2. There is a small central disc protrusion at C3-C4 and questionable right paracentral disc protrusion at C4-C5. 3. There is a nondisplaced right posterior second rib fracture. Ronald Richardson MD Pelvis X-Ray 10/17/161447 Signed Impressions: Service Date/Time: Monday, October 17, 2016 14:41 - CONCLUSION: No acute abnormality is identified. Ronald Richardson MD Maxillofacial CT 10/17/161447 Signed Impressions: Service Date/Time: Monday, October 17, 2016 15:02 - CONCLUSION: 1. Nondisplaced facial fractures on the right within an air-fluid level in the right maxillary sinus. 2. There is a small in the infratemporal fossa. 3. Mandible and maxilla are intact. Lucas Ordaz MD FACR Chest CT 10/17/161447 Signed Impressions: Service Date/Time: Monday, October 17, 2016 15:09 - CONCLUSION: 1. Multifocal areas of groundglass opacity throughout the right lung most likely represent pulmonary contusion. 2. Questionable nondisplaced right posterior second rib fracture. Ronald Richardson MD Abdomen/Pelvis CT 10/17/161447 Signed Impressions: Service Date/Time: Monday, October 17, 2016 15:00 - CONCLUSION: No acute abnormality is identified within the abdomen or pelvis. Ronald Richardson MD PE at Discharge GENERAL: This is a young male out of bed in a recliner chair in no distress SKIN: Warm and dry. HEAD: Atraumatic. Normocephalic. EYES: PERRLA. Right eye with ecchymosis and swelling. ENT: No nasal bleeding or discharge. Mucous membranes pink and moist. NECK: Trachea midline. No JVD. CARDIOVASCULAR: Regular rate and rhythm. RESPIRATORY: No accessory muscle use. Lungs are clear to auscultation. Breath sounds equal bilaterally. No distress or dyspnea. GASTROINTESTINAL: BS + x 4 quads. Abdomen soft, non-tender, nondistended. MUSCULOSKELETAL: Extremities without cyanosis, or edema. + peripheral pulses x 4 extremities. Warm with good capillary refill and sensation. MAEW. NEUROLOGICAL: Awake and alert. Normal speech and pattern. Hospital Course Name: Alvino Arciniega : 1980 [employer]: This is a young man who sustained a fall from 8-10 feet while working on a ladder onto the concrete hitting his head. + LOC. GCS 13-14 on scene. Blood noticed in right ear and nose. Initial complaints of right ear pain. INJURIES: Basal skull fracture to the RIGHT pyramid hemotympanum LEFT parietal brain contusion with small bleed RIGHT upper lung contusion RIGHT rib fx The patient is now tolerating a po diet. Eating and drinking well. Pain is being managed well with PO pain medications, and patient is being a provided with a script for pain meds upon discharge. (NO driving while taking narcotic pain medication enforced to patient.) Recommended for the patient continue with pulmonary toileting exercises even at home. Pt is having regular bowel movements, and have recommended to patient to continue with stool softeners while taking narcotic pain medications. Pt has been participating in PT while admitted at [facility] and has been ambulating with their assistance and independently . All follow up appointments have been provided and discussed with the patient. It is recommended that the patient keeps all his follow up appointments for continued recovery. The patient states he would really like to go home. Patient reminded to take it easy, no strenuous activity. Therefore, the patient is stable to be safely discharged home from a trauma surgery standpoint. Thank you for allowing us to participate in his care. We wish Alvino the best in his recovery. Pt Condition on Discharge: Stable Discharge Disposition: Discharge Home Discharge Instructions DIET: Follow Instructions for: As Tolerated, No Restrictions Activities you can perform: Weight Bearing as Rashard, Shower Only-No Bath Activities to Avoid: Driving for 24 hrs, Concussion Sports, Contact Sports, Strenuous Activity Rosa Peterson Oct 19, 2016 11:53
== END 2016-10-19 12:40 | disposition home or self-care (01) | DRG 964 ==
LOC: NEPI 14:46 → NEDA 15:40 → EDBD 15:40 → N03A 17:56 → N05A 10-18 17:09
PROVIDERS: ADMIT Surgery; ATTEND Surgery
DX: S02.19XA Other fracture of base of skull, initial encounter for closed fracture (principal); S27.321A Contusion of lung, unilateral, initial encounter; S22.31XA Fracture of one rib, right side, initial encounter for closed fracture; S06.2X1A Diffuse traumatic brain injury with loss of consciousness of 30 minutes or less, initial encounter; W11.XXXA Fall on and from ladder, initial encounter; Y92.89 Other specified places as the place of occurrence of the external cause; Y99.0 Civilian activity done for income or pay
CPT/HCPCS: 70450; 70486; 71010; 71260; 72125; 72170; 74177; 80048; 82435; 82565; 82947; 84132; 84295; 84520; 85025; 85610; 85730; 86850; 86900; 86901; 87640; 87641; 90471; 90715; 94150; 96374; 99291; A0431-QM-SH; A0436-QM-SH; G0390; J0690; J2270; J2405; J7030; Q9967